=== PATIENT | male | born 1960 | race Caucasian/White ===

== ENCOUNTER 2022-03-10 22:47 | Inpatient (IN) | payer OTHER ==
[~2022-03-10] VITALS: Ht 180 cm; Wt 101.0 kg
[2022-03-11 01:17] LABS: BILIRUBIN NEGATIVE (NEGATIVE); BLOOD TRACE-INTACT Ery/uL (NEGATIVE); CLARITY CLEAR (CLEAR); COLOR YELLOW (YELLOW); GLUCOSE (U) NORMAL (NORMAL); LEUKOCYTES NEGATIVE Leu/uL (NEGATIVE); NITRITE NEGATIVE (NEGATIVE); PROTEIN NEGATIVE (NEGATIVE); UROBILINOGEN 0.2 mg/dL (0.2-1.0)
[2022-03-11 01:24] LABS: BACTERIA TRACE
[2022-03-11 01:30] LABS: BASOPHIL 0.2 % (0-2); EOSINOPHIL 0.1 % (0-5); HCT 40.3 % (42.0-52.0); HGB 13.7 g/dl (13.2-18.0); LYMPHOCYTE 7.2 % (15-48); MCH 29.7 pg (25.0-31.0); MCV 87.4 fL (78.0-100.0); MONOCYTE 8.1 % (0-12); MPV 9.8 fL (6.0-9.5); NRBC 0; PLT 240 K/uL (150-400); RBC 4.61 M/uL (4.70-6.00); RDW 12.4 % (11.5-14.0); WBC 14.2 K/uL (4.0-10.5)
[2022-03-11 01:51] LABS: ALBUMIN 3.5 g/dL (3.4-5.0); BILIRUBIN - TOTAL 0.5 mg/dL (0.2-1.0); BUN/CREAT RATIO (CALC) 14.1 RATIO; CREATININE 0.78 mg/dL (0.67-1.17); GLOBULIN (CALCULATION) 3.9 g/dL; POTASSIUM 3.8 mmol/L (3.5-5.1); TOTAL PROTEIN 7.4 g/dL (6.4-8.2)
[2022-03-11 04:11] LABS: INR 1.03 (0.9-1.2); PROTHROMBIN TIME 12.9 SECONDS (11.8-13.4)
[2022-03-11] MEDS ORDERED: TOPROL XL 50 MG50 MG PO (05:20)
[2022-03-11] MEDS ORDERED: HCTZ12.5 MG PO (05:21)
[2022-03-11] MEDS ORDERED: ZOCOR40 MG PO (05:22)
[2022-03-11 07:21] LABS: LACTIC ACID 1.1 mmol/L (0.4-1.9)
[2022-03-11 11:20] LABS: BASOPHIL 0.1 % (0-2); EOSINOPHIL 0.1 % (0-5); HGB 12.6 g/dl (13.2-18.0); LYMPHOCYTE 8.9 % (15-48); MCH 29.7 pg (25.0-31.0); MCHC 34.1 g/dL (32.0-36.0); MCV 87.3 fL (78.0-100.0); MONOCYTE 9.4 % (0-12); MPV 10.1 fL (6.0-9.5); NEUTROPHIL 80.8 % (41-80); NRBC 0; PLT 231 K/uL (150-400); RBC 4.24 M/uL (4.70-6.00); RDW 12.6 % (11.5-14.0); WBC 14.1 K/uL (4.0-10.5)
[2022-03-12 07:07] LABS: BASOPHIL 0.2 % (0-2); EOSINOPHIL 0 % (0-5); HGB 11.7 g/dl (13.2-18.0); LYMPHOCYTE 7.4 % (15-48); MCH 30.1 pg (25.0-31.0); MCHC 33.4 g/dL (32.0-36.0); MONOCYTE 8.8 % (0-12); MPV 9.9 fL (6.0-9.5); NEUTROPHIL 83.2 % (41-80); NRBC 0; PLT 214 K/uL (150-400); RBC 3.89 M/uL (4.70-6.00); RDW 12.9 % (11.5-14.0); WBC 11.5 K/uL (4.0-10.5)
[2022-03-12 07:21] LABS: BUN/CREAT RATIO (CALC) 8.9 RATIO; CREATININE 0.9 mg/dL (0.67-1.17); POTASSIUM 4.4 mmol/L (3.5-5.1)
[2022-03-13 11:09] LABS: BASOPHIL 0.2 % (0-2); EOSINOPHIL 0.4 % (0-5); HCT 38.1 % (42.0-52.0); HGB 12.7 g/dl (13.2-18.0); LYMPHOCYTE 8.5 % (15-48); MCH 29.9 pg (25.0-31.0); MCHC 33.3 g/dL (32.0-36.0); MCV 89.6 fL (78.0-100.0); MONOCYTE 7.6 % (0-12); MPV 9.4 fL (6.0-9.5); NEUTROPHIL 82.6 % (41-80); NRBC 0; PLT 265 K/uL (150-400); RBC 4.25 M/uL (4.70-6.00); RDW 12.9 % (11.5-14.0); WBC 12.8 K/uL (4.0-10.5)
[2022-03-13 11:42] LABS: ALBUMIN 2.5 g/dL (3.4-5.0); BILIRUBIN - TOTAL 0.6 mg/dL (0.2-1.0); BUN/CREAT RATIO (CALC) 17.2 RATIO; CREATININE 0.64 mg/dL (0.67-1.17); GLOBULIN (CALCULATION) 4.4 g/dL; POTASSIUM 4.1 mmol/L (3.5-5.1); TOTAL PROTEIN 6.9 g/dL (6.4-8.2)
[2022-03-14 06:34] LABS: BASOPHIL 0.4 % (0-2); EOSINOPHIL 3.4 % (0-5); HCT 34.3 % (42.0-52.0); HGB 11.4 g/dl (13.2-18.0); LYMPHOCYTE 20.4 % (15-48); MCH 29.7 pg (25.0-31.0); MCHC 33.2 g/dL (32.0-36.0); MCV 89.3 fL (78.0-100.0); MONOCYTE 9.2 % (0-12); MPV 9.3 fL (6.0-9.5); NEUTROPHIL 66.2 % (41-80); NRBC 0; PLT 279 K/uL (150-400); RBC 3.84 M/uL (4.70-6.00); RDW 12.8 % (11.5-14.0); WBC 7.6 K/uL (4.0-10.5)
[2022-03-14 07:16] LABS: ALBUMIN 2.1 g/dL (3.4-5.0); BILIRUBIN - TOTAL 0.4 mg/dL (0.2-1.0); BUN/CREAT RATIO (CALC) 13.4 RATIO; CREATININE 0.67 mg/dL (0.67-1.17); POTASSIUM 3.9 mmol/L (3.5-5.1); TOTAL PROTEIN 6.1 g/dL (6.4-8.2)
--- NOTE | 2022-03-14 17:42 | NUR ---
03/14 Mr Ahn lives at home with his spouse. He retired early because his company shutdown during . His spouse was working for the same company. They are struggling to meet their financial obligations and concerned about the hospital bill. Mr. Villalba was educated to the [employer] and provided with a list of financial community resources; [facility], [employer], and [employer]
[2022-03-15 07:31] LABS: BASOPHIL 0.7 % (0-2); EOSINOPHIL 4.9 % (0-5); HCT 33.4 % (42.0-52.0); HGB 11.4 g/dl (13.2-18.0); MCH 30.2 pg (25.0-31.0); MCHC 34.1 g/dL (32.0-36.0); MCV 88.4 fL (78.0-100.0); MONOCYTE 10.8 % (0-12); MPV 9.4 fL (6.0-9.5); NRBC 0; PLT 289 K/uL (150-400); RBC 3.78 M/uL (4.70-6.00); RDW 12.7 % (11.5-14.0); WBC 5.9 K/uL (4.0-10.5)
[2022-03-15 07:38] LABS: LYMPHOCYTE 26.6 % (15-48)
[2022-03-15 08:45] LABS: BUN/CREAT RATIO (CALC) 14.7 RATIO; CREATININE 0.75 mg/dL (0.67-1.17); POTASSIUM 3.7 mmol/L (3.5-5.1)
[2022-03-15 10:26] LABS: IRON % SATURATION 20.1 %SAT (20-50)
[2022-03-15] MEDS ORDERED: OXY-IR 5MG5 MG PO (13:59)
[2022-03-15] MEDS ORDERED: FLORANEX TABLE1 EACH PO (14:05)
[2022-03-15] MEDS ORDERED: AUGMENTIN 500-1 EACH PO ×2 (14:05→14:11)
== END 2022-03-15 15:28 | disposition home or self-care (01) | DRG 329 ==
LOC: FER 22:47 → FMS 03-11 03:54
PROVIDERS: Allergy & Immunology Allergy; Emergency Medicine; Family Medicine; Hospitalist; Surgery; ADMIT Internal Medicine
PROC: 0WQF0ZZ Repair Abdominal Wall, Open Approach (ICD-10-PCS; 2022-03-11)
PROC: 0D9W0ZZ Drainage of Peritoneum, Open Approach (ICD-10-PCS; 2022-03-11)
PROC: 0DTJ0ZZ Resection of Appendix, Open Approach (ICD-10-PCS; principal; 2022-03-11 09:30)
PROC: 0DTF0ZZ Resection of Right Large Intestine, Open Approach (ICD-10-PCS; 2022-03-11 09:30)
PROC: 0DNL0ZZ Release Transverse Colon, Open Approach (ICD-10-PCS; 2022-03-11 09:30)
PROC: 0WJG4ZZ Inspection of Peritoneal Cavity, Percutaneous Endoscopic Approach (ICD-10-PCS; 2022-03-11 09:30)
PROC: 8E0ZXY6 Isolation (ICD-10-PCS; 2022-03-13)
DX: K91.89 Other postprocedural complications and disorders of digestive system (principal); K35.33 Acute appendicitis with perforation, localized peritonitis, and gangrene, with abscess; U07.1 COVID-19; K56.7 Ileus, unspecified; K91.71 Accidental puncture and laceration of a digestive system organ or structure during a digestive system procedure; K63.89 Other specified diseases of intestine; K42.9 Umbilical hernia without obstruction or gangrene; I10 Essential (primary) hypertension; Z53.31 Laparoscopic surgical procedure converted to open procedure; D64.9 Anemia, unspecified; B96.20 Unspecified Escherichia coli [E. coli] as the cause of diseases classified elsewhere; E66.9 Obesity, unspecified; E78.5 Hyperlipidemia, unspecified; Z98.890 Other specified postprocedural states; Z82.49 Family history of ischemic heart disease and other diseases of the circulatory system; Z68.31 Body mass index [BMI] 31.0-31.9, adult; Z79.899 Other long term (current) drug therapy
CPT/HCPCS: 36415; 74018; 80048; 80053; 81001; 82607; 83540; 83550; 83605; 83690; 85025; 85610; 86850; 86900; 86901; 87070; 87075; 87077; 87088; 87186; 87205; 94010; C9113; G0378; J0696; J1100; J1170; J1650; J1885; J2250; J2270; J2405; J2543; J2704; J2710; J3010; J3480; J7030; J7120; Q9967; U0002

== ENCOUNTER → 2022-05-17 | Day surgery (SDC) | payer OTHER ==
[~2022-05-17] VITALS: Ht 180.3 cm; Wt 101.3 kg
[~2022-05-17] MED LIST: AUGMENTIN 500-1 EACH PO; FLORANEX TABLE1 EACH PO; HCTZ12.5 MG PO; OXY-IR 5MG5 MG PO; TOPROL XL 50 MG50 MG PO; ZOCOR40 MG PO
[2022-05-17 09:09] LABS: BUN/CREAT RATIO (CALC) 15.9 RATIO; CREATININE 0.88 mg/dL (0.67-1.17); POTASSIUM 3.9 mmol/L (3.5-5.1)
== END | disposition home or self-care (01) ==
LOC: FAS 07:39
PROVIDERS: Surgery
DX: Z12.11 Encounter for screening for malignant neoplasm of colon (principal); D12.8 Benign neoplasm of rectum; K63.5 Polyp of colon; K57.30 Diverticulosis of large intestine without perforation or abscess without bleeding; I10 Essential (primary) hypertension; E78.00 Pure hypercholesterolemia, unspecified; Z87.891 Personal history of nicotine dependence; Z90.49 Acquired absence of other specified parts of digestive tract; Z79.899 Other long term (current) drug therapy
CPT/HCPCS: 36415; 80048; J2250; J2704; J7120